=== PATIENT | female | born 1985 | race Caucasian/White ===

== ENCOUNTER 2020-01-30 23:07 | Inpatient (IN) | payer OTHER ==
[~2020-01-30] VITALS: Ht 153.7 cm; Wt 92.1 kg
[~2020-01-30 23:07] MED LIST: ONDANSETRON ODT8 MG PO; VENTOLIN HFA18 GM INH
--- NOTE | 2020-01-30 23:57 | NUR ---
[facility] RAPID COVID TEST DONE PER ORDER. COVID TEST COLLECTED FROM BOTH NARES W/O ISSUE. PT TOLERATED WELL.
[2020-01-31] MEDS ORDERED: PRENATAL VITAM1 EACH PO (03:21)
[2020-01-31] MEDS ORDERED: CLARITIN10 M2 PO (03:21)
--- NOTE | 2020-01-31 06:40 | PR ---
[facility] [address] [facility] [place], [place] [address] Signed Progress Notes IP Datetime Report Generated by CPN: 01/31/2020 06:40 PROGRESS NOTES: [id number] Other Impressions: Early labor Procedures: Artificial ROM Plan: Continue Present Management; Anticipate Vaginal Delivery VITAL SIGNS: [id number] Vital Signs: Reviewed; Within Normal Limits EXAM: [id number] Dilatation: 4.0 Effacement: 50 Station: -3 Contractions: every 2-10 minutes MEMBRANES: [id number] Membranes Status: Ruptured Comments: Comfortable with Epidural; will continue to monitor. FETUS A: [id number] FHR Baseline: 130 Variability: Moderate 6-25bpm Accelerations: 15X15 Presentation: Vertex FETUS B: [id number] Signing Physician: Marina Calvo MD Copies: ~ *Electronically Signed* 01/31/20 0640 MARINA CALVO MD PATIENT NAME: ANDI TATE PROGRESS NOTE DATE OF : 85 PHYSICIAN: MARINA CALVO MD RPT #: [id number] REPORT IS CONFIDENTIAL AND NOT TO BE RELEASED WITHOUT AUTHORIZATION
--- NOTE | 2020-02-01 12:28 | PR ---
[facility] [address] [facility] [place] [address] Signed PP Progress Notes Datetime Report Generated by CPN: 02/01/2020 12:28 SUBJECTIVE: [id number] Pain: Within Normal Limits Nausea/Vomiting: Denies Vital Signs: [id number] Vital Signs: Reviewed; Within Normal Limits Notable Details: PP Hgb/Hct = 11.4/33.6 Abdomen/Uterus: Normal Lochia: Normal Extremities: Normal IMPRESSION/PLAN/PROCEDURES: [id number] Impression: Normal Progression Plan: Discharge Procedures: None Progress Notes: Doing well, without complaint, ready to go home Signing Physician: Marina Calvo MD Copies: ~ *Electronically Signed* 02/01/20 1228 MARINA CALVO MD PATIENT NAME: ANDI TATE PROGRESS NOTE DATE OF : 85 PHYSICIAN: MARINA CALVO MD RPT #: [id number] REPORT IS CONFIDENTIAL AND NOT TO BE RELEASED WITHOUT AUTHORIZATION
== END 2020-02-01 17:15 | disposition home or self-care (01) | DRG 807 ==
LOC: FBCO 23:07 → FBC 23:14
PROVIDERS: ADMIT General Practice; ATTEND General Practice
PROC: 10E0XZZ Delivery of Products of Conception, External Approach (ICD-10-PCS; principal; 2020-01-31)
PROC: 0HQ9XZZ Repair Perineum Skin, External Approach (ICD-10-PCS; 2020-01-31)
PROC: 10907ZC Drainage of Amniotic Fluid, Therapeutic from Products of Conception, Via Natural or Artificial Opening (ICD-10-PCS; 2020-01-31)
PROC: 00HU33Z Insertion of Infusion Device into Spinal Canal, Percutaneous Approach (ICD-10-PCS; 2020-01-31)
PROC: 3E0R3BZ Introduction of Anesthetic Agent into Spinal Canal, Percutaneous Approach (ICD-10-PCS; 2020-01-31)
DX: O70.0 First degree perineal laceration during delivery (principal); Z37.0 Single live birth; Z3A.39 39 weeks gestation of pregnancy; Z88.1 Allergy status to other antibiotic agents
CPT/HCPCS: 01960; 36415; 85027; A9270; C9803; J2590; J2795; J3010; J7121; U0003